=== PATIENT | male | born 1960 | race Caucasian/White ===

== ENCOUNTER 2018-02-06 07:40 | Day surgery (SDC) | payer BC ==
[~2018-02-06 07:40] MED LIST: ACETAMINOPHEN 1,000 MG/100 ML BTL IV ONE; CEFAZOLIN 2 Gram 2 GM/50 ML BAG IVPB ONE
[2018-02-06] MEDS ORDERED: MECLIZINE 25 MG TABLET PO ONE (07:41)
[2018-02-06] MEDS ORDERED: FAMOTIDINE 20MG TABLET PO ONE (07:41)
[2018-02-06] MEDS ORDERED: ONDANSETRON HCL IV 4 MG/2 ML VIAL IVP ONE (07:41)
[2018-02-06] MEDS ORDERED: DEXAMETHASONE 4 MG/ML 1ML VIAL IVP ONE (07:41)
[2018-02-06] MEDS ORDERED: KETOROLAC 30 MG/ML VIAL IVP ONE (07:41)
[2018-02-06] MEDS ORDERED: HYDROCODONE/APAP 7.5/325MG TABLET PO ONE (07:41)
[2018-02-06] MEDS ORDERED: PROPOFOL 10 MG/ML VIAL IV ONE (07:41)
[2018-02-06] MEDS ORDERED: BUPIVACAINE LIPOSOME/PF 133MG/10ML VIAL IV ONE (07:41)
[2018-02-06] MEDS ORDERED: MIDAZOLAM HCL 2MG/2ML VIAL IV ONE (07:41)
[2018-02-06] MEDS ORDERED: METHYLPREDNISOLONE 40MG/VIAL IM ONE (07:41)
[2018-02-06] MEDS ORDERED: DESFLURANE 240 ML BTL INH ONE (07:41)
[2018-02-06] MEDS ORDERED: BUPIVACAINE 0.5% W/EPI MPF 30 ML VIAL IVP ONE (07:41)
[2018-02-06] MEDS ORDERED: LIDOCAINE 2% MDV (20MG/ML) 20ML VIAL IV ONE (07:41)
--- NOTE | 2018-02-06 20:44 | Operative Note ---
DATE OF SURGERY: 02/06/2018. PREOPERATIVE DIAGNOSES: 1. LEFT KNEE MEDIAL MENISCUS TEAR. 2. ARTHROSIS. POSTOPERATIVE DIAGNOSES: 1. LEFT KNEE MEDIAL MENISCUS TEAR. 2. ARTHROSIS. PROCEDURE: 1. DIAGNOSTIC ARTHROSCOPY. 2. ARTHROSCOPIC PARTIAL POSTERIOR, MIDDLE, AND ANTERIOR HORN MEDIAL MENISCECTOMY. 3. ARTHROSCOPIC DEBRIDEMENT AND CHONDROPLASTY OF THE MEDIAL FEMORAL CONDYLE. 4. ARTHROSCOPIC DEBRIDEMENT AND CHONDROPLASTY OF THE FEMORAL TROCHLEA. SURGEON: NIMA DEVI M.D. ANESTHESIA: LMA. SADIA AHUMADA CRNA. COMPLICATIONS: NONE. BLOOD LOSS: MINIMAL. 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 INDICATIONS FOR OPERATION: This is an 57-year-old male who has persistent pain , swelling, and mechanical symptoms in his knee. He had an MRI, which showed a tear of the medial meniscus and he is scheduled for the procedures above. I explained the risks and benefits thoroughly in detail for his diagnoses and procedures including but not limited to infection, nerve injury, vessel injury, persistent pain, stiffness, numbness and tingling in his knee, the fact that he has arthrosis in the knee and this procedure will not cure that condition and he could require further procedures, such as knee replacement and all of his questions were answered. Rehab and course were outlined and he agreed to proceed. PROCEDURE: The patient brought to O.R. and placed in the supine position for proper surgery. LMA anesthesia was induced and his left lower extremity and knee were prepped and draped in the usual sterile fashion. The left knee was prepped again with ChloraPrep after it was draped. Intraoperative time-out was performed. The knee was injected with 0.5% Marcaine with Epinephrine. A standard superior lateral inflow portal was established. Inferior medial and lateral portals were established and diagnostic arthroscopy was performed. The suprapatellar pouch was normal. The medial gutter was normal. The medial compartment revealed a complex horizontal fissure tear of the entire middle, posterior, and anterior horns of the medial meniscus. We used a combination of basket biters and lora and we removed approximately 60% of the width of the meniscus to a smooth and stable surface on the periphery. The cartilage here showed diffuse areas of grade 4 chondromalacia with some loose cartilage flaps on the periphery. We debrided those lightly with a shaver to a smooth and stable surface. The intercondylar notch was normal. The ACL and PCL were intact. The lateral compartment was normal. The meniscus here was normal and the cartilage was normal. The lateral gutter was normal. The intercondylar notch revealed normal ACL. The patellofemoral compartment was thoroughly inspected. There was grade 4 chondromalacia of the femoral trochlea here again, a 3 cm oval area. We debrided the loose peripheral flaps with a shaver. The patella showed grade 1 to 2 changes. This completed our procedures. The scope and equipment were removed. We suctioned the fluid out. The knee was bolused with 0.5% Marcaine with Epinephrine, 80 mg DepoMedrol, and Exparel. Sterile dressing applied, PHONG wrap. The patient tolerated the procedures well. No intraoperative complications. All sponge, needle, and blade counts correct. Recovery Room stable, neurovascularly intact. He will be discharged as an outpatient and follow-up in two weeks. He will have [facility] nurse. cc: Dr. Nima Gregorio JOB NUMBER: [id number] MTDD
== END 2018-02-06 12:10 | disposition home or self-care (01) ==
LOC: SUR 07:40
PROVIDERS: ATTEND Orthopaedic Surgery
DX: S83.232A Complex tear of medial meniscus, current injury, left knee, initial encounter (principal); M17.12 Unilateral primary osteoarthritis, left knee
CPT/HCPCS: 29870; 29881; 01400; J1885; J2405; J0690; C9290; J1030

== ENCOUNTER 2018-07-25 10:49 | Day surgery (SDC) | payer BC ==
[~2018-07-25 10:49] MED LIST changes: -ACETAMINOPHEN 1,000 MG/100 ML BTL IV ONE; +CELECOXIB 100 MG CAPSULE PO ONE; +FAMOTIDINE 20MG TABLET PO ONE; +MECLIZINE 25 MG TABLET PO ONE; +METOCLOPRAMIDE 10 MG TABLET PO ONE; +SCOPOLAMINE 1 PATCH TDSY TD ONE; +VANCOMYCIN HCL 1,000 MG in DEXTROSE 5 % IN WATER 250 ML IVPB ONE
[2018-07-25] MEDS ORDERED: ROPIVACAINE HCL (NAROPIN) /PF 5MG/ML 20ML VIAL IV ONE (10:50)
[2018-07-25] MEDS ORDERED: MIDAZOLAM HCL 2MG/2ML VIAL IV ONE (10:50)
[2018-07-25] MEDS ORDERED: PROPOFOL 10 MG/ML VIAL IV ONE (10:50)
[2018-07-25] MEDS ORDERED: DEXAMETHASONE 4 MG/ML 1ML VIAL IVP ONE (10:50)
[2018-07-25] MEDS ORDERED: TRANEXAMIC ACID 1,000 MG/10 ML ML IV ONE (10:50)
[2018-07-25] MEDS ORDERED: KETAMINE HCL 100MG/1ML VIAL INJ ONE (10:50)
[2018-07-25] MEDS ORDERED: RINGERS SOLUTION,LACTATED 1,000 ML IV ONE (11:40)
[2018-07-25 12:02] LABS: ABO GROUP A; ANTIBODY SCREEN NEGATIVE (NEGATIVE); RH TYPE POSITIVE
[2018-07-25] MEDS ORDERED: BUPIVACAINE 0.5% W/EPI MPF 30 ML VIAL SQ ONE (14:28)
[2018-07-25] MEDS ORDERED: RINGERS SOLUTION,LACTATED 250 ML IV ONE (14:56)
[2018-07-25] MEDS ORDERED: AL HYDROX/MAG HYDROX 30ML UD PO PRN (15:05)
[2018-07-25] MEDS ORDERED: TRAMADOL HCL 50 MG TABLET PO PRN (15:05)
[2018-07-25] MEDS ORDERED: BISACODYL 10 MG SUPP RC PRN (15:05)
[2018-07-25] MEDS ORDERED: HYDROMORPHONE HCL 2 MG/ML VIAL IM PRN (15:05)
[2018-07-25] MEDS ORDERED: KETOROLAC 30 MG/ML VIAL IVP PRN ×2 (15:05)
[2018-07-25] MEDS ORDERED: MAGNESIUM HYDROXIDE 30 ML UDC PO PRN (15:05)
[2018-07-25] MEDS ORDERED: ACETAMINOPHEN 325 MG TAB PO PRN (15:05)
[2018-07-25] MEDS ORDERED: DIPHENHYDRAMINE HCL 25 MG CAPSULE PO PRN (15:05)
[2018-07-25] MEDS ORDERED: NALOXONE 0.4 MG/1 ML VIAL IVP PRN (15:05)
[2018-07-25] MEDS ORDERED: ONDANSETRON HCL IV 4 MG/2 ML VIAL IVP PRN (15:05)
[2018-07-25] MEDS ORDERED: HYDROCODONE/APAP 10/325 TABLET PO PRN (15:05)
[2018-07-25] MEDS ORDERED: ZOLPIDEM TARTRATE 5 MG TABLET PO PRN (15:05)
[2018-07-25] MEDS ORDERED: ACETAMINOPHEN W/ CODEINE 300MG/60MG TABLET PO PRN ×2 (15:05)
[2018-07-25] MEDS: POTASSIUM CHLORIDE/D5-0.9%NACL 20 MEQ/1,000 ML BAG IV SCH (17:54)
[2018-07-25] MEDS: HYDROCODONE/APAP 10/325 TABLET PO PRN ×2 (19:11→23:16)
[2018-07-25] MEDS: CEFAZOLIN 1 Gram 1 GM/50 ML BAG IVPB SCH ×2 (20:20→21:00)
[2018-07-25] MEDS: DOCUSATE SODIUM 100 MG CAPSULE PO SCH (21:27)
[2018-07-26] MEDS: POTASSIUM CHLORIDE/D5-0.9%NACL 20 MEQ/1,000 ML BAG IV SCH ×2 (03:26→09:22)
[2018-07-26] MEDS: CEFAZOLIN 1 Gram 1 GM/50 ML BAG IVPB SCH ×2 (05:27→05:35)
[2018-07-26 06:38] LABS: HEMATOCRIT 38.4 % (42.0-52.0); HEMOGLOBIN 12.9 gm/dl (14.0-18.0)
[2018-07-26 06:46] LABS: BLOOD UREA NITROGEN 12 mg/dL (6-20); CREATININE 0.6 mg/dL (0.7-1.2); EST GLOMERULAR FILTRATION RATE > 60 mL/min; GLUCOSE,RANDOM 123 mg/dL (74-109)
[2018-07-26] MEDS: HYDROCODONE/APAP 10/325 TABLET PO PRN (08:25)
[2018-07-26] MEDS: DOCUSATE SODIUM 100 MG CAPSULE PO SCH (09:59)
[2018-07-26] MEDS ORDERED: RIVAROXABAN 10 MG TABLET PO SCH (10:00)
[2018-07-26] MEDS ORDERED: FUROSEMIDE 20 MG TABLET PO SCH (10:00)
[2018-07-26] MEDS ORDERED: FERROUS SULFATE 325 MG TAB PO SCH (10:00)
[2018-07-26] MEDS ORDERED: POTASSIUM CHLORIDE 10 MEQ TAB PO SCH (10:00)
[2018-07-26] MEDS ORDERED: CEFAZOLIN 1G VIAL IVP ONE (13:00)
--- NOTE | 2018-07-26 13:57 | Rehab Evaluation ---
Patient Information - Patient Information Diagnosis: osteoarthritis L knee Ordered Treatment: OT Evaluate and Treat Status: Initial Evaluation Surgery: Yes Date of Surgery: 07/25/18 Past Medical/Surgical Hx: PAST MEDICAL/SURGICAL HISTORY Past Surgical History LEFT KNEE SCOPE 02-06-18 AND 03-21 hernia repair left hand sx c scopes PMH - Respiratory Hx Respiratory Disorders No PMH - Cardiovascular Hx Cardiovascular Disorders Yes Hx Edema Yes: LEFT LEG ON LASIX FOR THIS Exercise Tolerance Good PMH - Neuro Hx Neurological Disorders No PMH - GI Hx Gastrointestinal Disorders No PMH - Hx Genitourinary Disorders No PMH - Endocrine Hx Endocrine Disorders No PMH - Musculoskeletal Hx Musculoskeletal Disorders Yes Hx Arthritis Yes Comment: left knee pain and swelling PMH - Psych Hx Psychiatric Problems No PMH - Hematology/Oncology Hx Hematology/Oncology No Disorders Premorbid Status: Detail (58 y.o. M with elective L TKA. [employer] Pt indep. all I/ ADLs, driving, and working, living with spouse in a 2-story home. There are 4 GERALDINE with L HR. The bathroom is equipped with a walk-in shower with small lip, a shower stool, GB, HHSH, and a RTS with GB. The Pt has a FWW, crutches, and a cane. Pt intends to only use 1st level of home upon DC.) Precautions: [place], Fall, Other (WBAT L LE) - Time With Patient Total Time Spent With Patient (Min): 26 (1 eval (8:15-8:45)) Treatment Procedures: Detail (OT eval: low complexity) Subjective Information - Subjective Information Per Patient (Pt. agreeable to OT eval. Ok to see per JASMYN Mcmahan.) Objective Data - Pain Pain Present: Yes Pain Scale Used: Numeric (1 - 10) (pain not quantified but does not appear to limit [id number] kay giving pain meds at bedside) - Mental Status Patient Orientation: Oriented x3 - Visual Perception Appears within normal limits for therapeutic activities - ROM Within normal limits - Strength/Tone Within normal limits - Coordination Appears within normal limits for therapeutic activities - Bed Mobility Independent (supine >< EOB) - Transfers Independent (indep. sit >< stand from low surfaces with FWW) - Gait Detail (Functional mobility within bedroom with FWW and supervision progressing to mod I.) - ADL's/IADL's Detail (OT educ. Pt on adaptive tech for LB dressing, Pt demos mod I to don/ doff underwear, pants, socks and shoes including compression socks with modified technique. OT educ. Pt on kitchen, bathroom, and laundry safety at home, Pt verbalizes understanding.) Therapy Assessment - Therapy Assessment Detail (Pt demos safety and Mod I with LB dressing and verbalizes safe tech for home tasks. No OT concerns with home DC with spouse assist PRN.) Problem List - Problem List Occupational Therapy Problem List: Detail (No further OT needs identified.) Goals - Goals Occupational Therapy Goals: No further inpatient needs/goals identified. DC inpatient OT services. Prognosis - Prognosis Good Plan - Plan Occupational Therapy Plan: No further inpatient needs/goals identified. DC inpatient OT services. Thank you for this referral.
--- NOTE | 2018-07-26 16:40 | Rehab Evaluation ---
Patient Information - Patient Information Diagnosis: osteoarthritis L knee Ordered Treatment: PT Evaluate and Treat Status: Initial Evaluation Surgery: Yes (L TKA) Date of Surgery: 07/25/18 Past Medical/Surgical Hx: PAST MEDICAL/SURGICAL HISTORY Past Surgical History LEFT KNEE SCOPE 02-06-18 AND 03-21 hernia repair left hand sx c scopes PMH - Respiratory Hx Respiratory Disorders No PMH - Cardiovascular Hx Cardiovascular Disorders Yes Hx Edema Yes: LEFT LEG ON LASIX FOR THIS Exercise Tolerance Good PMH - Neuro Hx Neurological Disorders No PMH - GI Hx Gastrointestinal Disorders No PMH - Hx Genitourinary Disorders No PMH - Endocrine Hx Endocrine Disorders No PMH - Musculoskeletal Hx Musculoskeletal Disorders Yes Hx Arthritis Yes Comment: left knee pain and swelling PMH - Psych Hx Psychiatric Problems No PMH - Hematology/Oncology Hx Hematology/Oncology No Disorders Premorbid Status: Detail (58 y.o. M with elective L TKA. prior to admission Pt indep. all I/ADLs, driving, and working, living with spouse in a 2-story home. There are 4 stairs with one handrail. The bathroom is equipped with a walk-in shower with small lip, a shower stool,grab bars, hand held shower and a standard toilet with a grab bar. The Pt has a front wheeled walker, crutches, and a cane. Pt intends to only use 1st level of home upon DC.) Precautions: [place], Fall, Other (WBAT L LE) - Time With Patient Total Time Spent With Patient (Min): 30 Treatment Procedures: Detail (Initial Evaluation, Gait training.) Subjective Information - Subjective Information Per Patient (The patient had no complaints of pain) Objective Data - Mental Status Patient Orientation: Oriented x3 - Visual Perception Appears within normal limits for therapeutic activities - ROM Not within normal limits (The patient's L LE was limited as to be expected s/p. All other LE AROM was WNL.) - Strength/Tone Not within normal limits (The patient's L LE strength was not tested s/p however was functional ie: the patient was able to complete a SLR. The patient' s R LE strength was WNL.) - Bed Mobility Independent (The patient was independent with supine to and from sit transfer and scooting up in bed.) - Transfers Independent (The patient was independent with sit to and from stand transfer.) - Balance Balance Sitting: Good Balance Standing: Good - Gait Detail (The patient ambulated independently with front wheeled walker a distance of 134 feet x 1 WBAT on L LE. The patient ambulated on 3 stairs with use of one railing and folded walker with supervision for safety using proper technique.) Therapy Assessment - Therapy Assessment Detail (The patient was independent with bed mobility, transfers and ambulation. The patient has met all inpatient goals and is discharged from inpatient PT.) Patient Education - Patient Education Teaching Topic: Exercise/Activity (The patient completed the following TKA HEP including: heel slides, quad sets, gluteal sets, hamstring sets, SLR and ankle pumps.) Response: Return Demonstration Teaching Method: Demonstration, Handout Teaching Recipient: Patient Barriers To Learning: None Problem List - Problem List Physical Therapy Problem List: Detail (Decreased L knee AROM and L LE strength s /p surgery.) Occupational Therapy Problem List: Detail (No further OT needs identified.) Goals - Goals Physical Therapy Goals: The patient has met all inpatient PT goals. Occupational Therapy Goals: No further inpatient needs/goals identified. ID inpatient OT services. Prognosis - Prognosis Good Plan - Plan Physical Therapy Plan: The patient is discharged from inpatient PT and is to continue with Home PT. Occupational Therapy Plan: No further inpatient needs/goals identified. ID inpatient OT services. Thank you for this referral.
--- NOTE | 2018-07-27 11:20 | Operative Note ---
DATE OF SURGERY: 07/25/2018 PREOPERATIVE DIAGNOSIS: End-stage arthrosis of the left knee. POSTOPERATIVE DIAGNOSIS: End-stage arthrosis of the left knee. OPERATION: Cemented left total knee arthroplasty using [employer]ary II components with a size 7 Oxinium femur, a size 7 stem tibia baseplate, a 9 mm lipped highly crosslinked tibial insert, and a 35 mm all plastic patella. STAFF SURGEON: Jl Santillan MD ANESTHESIA: Spinal. PREPARATION: Chloraprep. INDIVIDUAL CONSIDERATIONS: None. PROCEDURE: The patient was taken to the operating room, placed supine on the operating room table. He had a successful induction of a spinal anesthetic. The left lower extremity was prepped and draped in the usual fashion. The limb was elevated and tourniquet was inflated to 250 mmHg. The patient had a midline approach to the knee. Sharp dissection carried down through skin and subcutaneous tissue. Small veins were coagulated with a Bovie. A medial arthrotomy was performed. The patella was everted and the knee was flexed. The patient had exposed bone in the medial and patellofemoral compartments with large osteophytes. Fat pad was resected, ACL was sacrificed, and provisional anterior meniscectomies were performed. The capsule was released from the medial proximal tibia. The initial femoral pilot plant operator helper hole was then made freehand. The intramedullary femoral cutting jig was placed. It was cut in 7.0 degrees of valgus and adjusted for rotation and secured with pins for a 10 mm resection. The initial transverse cut was then made. The skin guide was placed in the anterior and posterior pilot plant operator helper holes. It was found that a size 7 would be appropriate. The anterior and posterior cuts followed by chamfer cuts were made. Osteophytes removed, and a size 7 trial was placed and found to fit well. The tibia was brought forward, and the remainder of the meniscal remnants removed with a Bovie. The extraarticular tibial cutting jig was placed. It was cut in neutral with a 3-degree AP slope. It was adjusted for rotation and flexion using the extraarticular alignment guide and bony landmarks. It set for a 9 mm resection keyed off the high lateral side and secured with pins. When cutting the tibia, care was taken to preserve the PCL insertion on the tibia. After removing osteophytes, I could easily fit a size 7 baseplate. It was adjusted for rotation and secured with pins. With a 9 mm trial and femoral trial, there was excellent motion and stability, ligamentous balance, rotation alignment were thought to be normal. The femoral pilot plant operator helper holes were impacted, and the tri-flange tibial stamp was impacted, and these trial components were removed. The patient had a very large patella, and roughly 9 mm of bone was removed freehand. I could easily fit a 35 patella. The 3 pilot plant operator helper holes were drilled. I then removed the tourniquet briefly to get bleeders posteriorly and then placed back up again. Now thorough irrigation commenced with copious amounts of pulsatile Betadine and saline. Bony surfaces were then dried. A size 7 stem tibia baseplate was cemented into place followed by impaction of the 9 mm highly crosslinked tibial insert followed by cementing in the size 7 Oxinium femur followed by cementing in the 35 mm all-plastic patella. The implant surfaces were compressed, excess cement was removed. After the cement had set, there was excellent motion and stability, ligamentous balance, rotation alignment, and patellofemoral tracking were normal. Again thorough irrigation. Tourniquet was let down. Hemostasis was obtained with a Bovie. Then, after final irrigation, I closed the capsule with running #2 quill. Subcu was closed in layers with running 0 quill, and skin was closed with olvin. Prior to closure, I did infiltrate the skin, subcutaneous tissue, and periosteum with 30 mL of 0.5% Marcaine with epinephrine. Prior to placing the dressing, in injected the knee with 1 g of tranexamic acid was mixed with 30 mL of saline, and a sterile bulky compressive JODIE-type dressing was applied. The patient tolerated the procedure well. Needle and sponge counts were correct. Estimated blood loss was minimal, and he was taken back to recovery in good condition. There were no complications. [facility]
== END 2018-07-26 11:45 | disposition home health service (06) ==
LOC: SUR 10:49 → MEDSURG 15:45 → SUR 07-26 11:45
PROVIDERS: ATTEND Orthopaedic Surgery
DX: M17.12 Unilateral primary osteoarthritis, left knee (principal)
CPT/HCPCS: 27447; 01402; 64447; 85018; 85014; 80048; 86900; 86901; 86850; 90686; J3370; J0690 ×3; J3490 ×4; J2795; 76942; J3480; J7060; J7120